=== PATIENT | female | born 1985 | race Caucasian/White ===

== ENCOUNTER 2016-06-01 03:50 | Emergency (ER) | payer MEDICAID ==
[2016-06-01] MEDS ORDERED: ONDANSETRON 4 MG VIAL ONE (05:30)
[2016-06-01] MEDS ORDERED: LORAZEPAM 2 MG/ML VIAL ONE (05:31)
[2016-06-01] MEDS ORDERED: SODIUM CHLORIDE 0.9% 1,000 ML ONE (05:31)
== END 2016-06-01 08:03 | disposition left against medical advice (07) ==
LOC: ER 03:50
DX: R56.9 Unspecified convulsions (principal); F10.231 Alcohol dependence with withdrawal delirium; F17.210 Nicotine dependence, cigarettes, uncomplicated
CPT/HCPCS: 36415; 70450; 80053; 80307; 80320; 80329; 81001; 85025; 96374; 96375